=== PATIENT | female | born 1950 | race Caucasian/White ===

== ENCOUNTER 2018-01-29 11:36 | Emergency (ER) | payer MEDICARE, OTHER ==
[2018-01-29 12:14] VITALS: BP 165/76
--- NOTE | 2018-01-29 21:52 | ER ---
DATE OF SERVICE: 01/29/2018 HISTORY OF PRESENT ILLNESS: A 67-year-old lady here with complaints of pain involving the right leg area, mostly behind the knee and it does radiate slightly up and down from the knee area. This has been ongoing for about 3 weeks. The patient denies any recent injuries. She states they have been traveling a lot. She is concerned about a blood clot. The patient denies any history of DVTs or recent surgery. OBJECTIVE: GENERAL APPEARANCE: The patient is awake and alert. No obvious distress. VITAL SIGNS: Reviewed as listed. Blood pressure initially 185/100, pulse is 75 , she is afebrile. MUSCULOSKELETAL: Examining the right knee reveals the skin is intact. There is no swelling or discoloration. I cannot reproduce any pain with palpation of the knee, anterior posteriorly or bilaterally. There is no tenderness with palpation of the calf muscle. Homans sign is negative. The patient's blood pressure was rechecked with a better reading of 165/76. LABORATORY AND X-RAY DATA: Ultrasound is unavailable today. Labs include a CBC, comprehensive metabolic panel, and D-dimer. D-dimer is normal. Metabolic panel shows a slightly low potassium level of 3.3. DIAGNOSIS: Right leg pain suspicious for a Flores cyst with a negative D-dimer. TREATMENT PLAN: We will schedule the patient for an ultrasound as soon as possible. Activity should be as tolerated. In the meantime, it appears we can get her set up for an ultrasound tomorrow morning. NAKIA/ALESSANDRAL /[id number] GEORGE
== END 2018-01-29 12:52 | disposition home or self-care (01) ==
LOC: LB.ED 11:36
DX: M79.604 Pain in right leg (principal)
CPT/HCPCS: 36415; 80053; 85025; 85379; 99283